=== PATIENT | male | born 1940 | race Caucasian/White ===

== ENCOUNTER 2017-12-30 08:40 | Inpatient (IN) | payer MEDICARE, MEDICAID ==
[2017-12-30] VITALS (16 sets, daily range): BP systolic 72–160; BP diastolic 42–82
[~2017-12-30] VITALS: Ht 182.9 cm; Wt 87.2 kg
[~2017-12-30 08:40] MED LIST: etomidate 2mg/ml inj. ONE; sodium chloride 0.9% 10ml vial - diluent IJ ONE
[2017-12-30] MEDS ORDERED: magnesium 2GM in 50ml NS 50 ML IV PRN (12:45)
[2017-12-30] MEDS ORDERED: CefTRIAXone 1000mg IM Kit (w/lidocaine diluent) IM ONE (12:45)
[2017-12-30] MEDS: K, MAG and/or Phos replacement - Verify level? MC SCH (12:45)
[2017-12-30] MEDS ORDERED: Neutra Phos packet PO PRN (12:45)
[2017-12-30] MEDS ORDERED: magnesium Cl slow-release 64mg tablet PO PRN (12:45)
[2017-12-30] MEDS ORDERED: magnesium 4gm in 100ml NS 100 ML IV PRN (12:45)
[2017-12-30] MEDS ORDERED: levoFLOXACIN-Levaquin 500mg/D5 100 ML IV SCH (12:45)
[2017-12-30] MEDS ORDERED: potassium Cl 20 mEq SR tablet PO PRN ×2 (12:45)
[2017-12-30] MEDS ORDERED: sodium phosphate inj. 30 MMOL in dextrose 5%-water 250 ML IV PRN (12:45)
[2017-12-30] MEDS ORDERED: sodium phosphate inj. 15 MMOL in dextrose 5%-water 150 ML IV PRN (12:45)
[2017-12-30] MEDS ORDERED: ipratropium/albuterol 3ml nebule NEB PRN (12:45)
[2017-12-30] MEDS ORDERED: ondansetron/PF 4mg/2ml inj IV PRN (12:45)
[2017-12-30] MEDS ORDERED: MIDAZolam 5mg/ml 2ml vial ONE (13:18)
[2017-12-30] MEDS ORDERED: ASPI-611 PO (13:22)
[2017-12-30] MEDS ORDERED: ATR0.5NEB IH (13:22)
[2017-12-30] MEDS ORDERED: PIPE3.3739 IV (13:22)
[2017-12-30] MEDS ORDERED: DIGO125T PO (13:22)
[2017-12-30] MEDS ORDERED: ATOR80TA PO (13:22)
[2017-12-30] MEDS ORDERED: BUDE0.5A11 IH (13:22)
[2017-12-30] MEDS ORDERED: LEVA1.2527 NEB (13:22)
[2017-12-30] MEDS ORDERED: BUDE10.2 INH (13:22)
[2017-12-30] MEDS ORDERED: LINE600I8 (13:22)
[2017-12-30] MEDS ORDERED: APIX5TAB3 PO (13:22)
[2017-12-30] MEDS ORDERED: ALB0.5UD IH (13:22)
[2017-12-30] MEDS ORDERED: AMIO200T57 PO (13:22)
[2017-12-30] MEDS ORDERED: [UNRECOGNIZED DRUG - CODE] IV (13:22)
[2017-12-30] MEDS ORDERED: FOLI0.4T2 PO (13:22)
[2017-12-30] MEDS ORDERED: PRED5TAB PO (13:23)
[2017-12-30] MEDS ORDERED: cefTRIAXone 1g/NS 100ml IVPB 100 ML IV SCH (14:00)
[2017-12-30] MEDS ORDERED: albuterol 2.5 MG/3 ML nebule NEB PRN (14:10)
[2017-12-30 14:20] LABS: ABG BASE EXCESS -0.9 mmol/L (-2.0-3.0); ABG HCO3 26.7 mmol/L (22.0-26.0); ABG OXYGEN SATURATION 99.4 % (95-98); ABG PCO2 (T) 59.9 mmHg (35.0-48.0); ABG PH (T) 7.267 (7.350-7.450); ABG PO2 (T) 316.1 mmHg (83-108); FCOHb 0.6 % (0.5-1.5); FMetHb 0.4 % (0.3-1.12); FO2Hb 98.4 % (94-100); MINUTE VOLUME 6 L/min; PEEP 5 cm H2O; RESPIRATORY RATE 12 b/min; RESPIRATORY RATE (OBSERVED) 12 b/min; TIDAL VOLUME 450 mL; TOTAL HEMOGLOBIN 10.3 G/dl (14.0-18.0)
[2017-12-30 14:25] LABS: OXYGEN SATURATION (MIXED VEN) 85.2 % (60-80); PO2 MIXED VENOUS (TEMP COR) 56.3 mmHg (35-46)
[2017-12-30 14:39] LABS: PLATELET COUNT 112 X10'3 (140-440)
[2017-12-30 14:45] LABS: BASOPHILS % (AUTO) 0 % (0-1); EOSINOPHILS # (AUTO) 0.2 X10'3 (0-0.9); EOSINOPHILS % (AUTO) 2.4 % (0-6); HEMATOCRIT 29.3 % (42.0-52.0); HEMOGLOBIN 9.4 g/dl (14.0-17.9); LYMPHOCYTES # (AUTO) 0.2 X10'3 (1.1-4.8); LYMPHOCYTES % (AUTO) 1.6 % (21-51); MEAN CORPUSCULAR HEMOGLOBIN 29.1 PG (27.0-31.0); MEAN CORPUSCULAR VOLUME 90.9 FL (78-98); MEAN PLATELET VOLUME 8.4 FL (7.4-10.4); MONOCYTES # (AUTO) 0.2 X10'3 (0-0.9); MONOCYTES % (AUTO) 2.1 % (2-12); NEUTROPHILS % (AUTO) 93.9 % (42-75); PLATELET COUNT 115 X10'3 (140-440); RED BLOOD COUNT 3.22 X10'6 (4.70-6.10); RED CELL DISTRIBUTION WIDTH 21.6 % (11.5-14.5); WHITE BLOOD COUNT 9.6 X10'3 (4.5-11.0)
[2017-12-30 14:58] LABS: ALANINE AMINOTRANSFERASE 41 U/L (12-78); ALBUMIN 2.8 G/DL (3.4-5.0); ALBUMIN/GLOBULIN RATIO 1.1 (1.1-1.5); ALKALINE PHOSPHATASE 73 IU/L (46-116); ANION GAP 7 (8-16); ASPARTATE AMINO TRANSFERASE 19 U/L (10-37); BILIRUBIN,TOTAL 0.7 MG/DL (0.1-1.0); BLOOD UREA NITROGEN 64 MG/DL (7-18); BUN/CREATININE RATIO 45.7 (5.4-32.0); CALCIUM 7.7 MG/DL (8.5-10.1); CHLORIDE 105 MMOL/L (99-107); GLUCOSE 174 MG/DL (70-104); PHOSPHORUS 3.7 MG/DL (2.3-4.5); POTASSIUM 4.4 MMOL/L (3.5-5.1); SODIUM 142 MMOL/L (135-145); TOTAL CARBON DIOXIDE 30.3 MMOL/L (24-32); TOTAL PROTEIN 5.3 G/DL (6.4-8.2); eGFR 49 ML/MIN
[2017-12-30 15:21] LABS: D-DIMER 1.91 MG/L FEU (0-0.50); INR 1.1 INR; PARTIAL THROMBOPLASTIN TIME 28 SECONDS (22-32); PROTHROMBIN TIME 10.9 SECONDS (9.0-12.0)
[2017-12-30] MEDS: DOBUTamine-DoBUTrex 500mg/D5W 250 ML IV SCH (15:29)
[2017-12-30] MEDS: ipratropium/albuterol 3ml nebule IH SCH ×2 (15:30→20:25)
[2017-12-30] MEDS: methylPREDNISolone sod succ 125mg/2ml vial IV SCH ×3 (15:38→21:14)
[2017-12-30] MEDS: enoxaparin 40mg/0.4ml syringe SUBCUT SCH (15:38)
[2017-12-30] MEDS: pantoprazole 40 MG vial IV SCH (15:39)
[2017-12-30 15:46] LABS: CLARITY,URINE Turbid (Clear); COLOR,URINE Orange (Yellow); GLUCOSE, URINE Negative (Neg); KETONES,URINE Negative (Neg); LEUKOCYTE ESTERASE ,URINE Large (Neg); NITRITES, URINE Negative (Neg); OCCULT BLOOD,URINE Large (Neg); PROTEIN,URINE 30 mg/dl (Neg); UA COLLECTION TYPE NON-SPECIFIED
[2017-12-30 15:54] LABS: RBC,URINE TNTC /HPF (0-2); WBC,URINE 50-100 /HPF (0-4)
[2017-12-30 15:55] LABS: BACTERIA,URINE NONE SEEN /HPF (Neg); SQUAMOUS EPITHELIAL CELL,UR NONE SEEN /LPF (FEW)
[2017-12-30] MEDS ORDERED: DOPamine 400mg/D5W 250ml 250 ML IV SCH (16:30)
[2017-12-30] MEDS: FENTANYL-0.9 % NACL/PF 100 ML IV PRN (16:32)
[2017-12-30] MEDS: midazolam 100mg in NS 100ml 100 ML IV PRN (16:32)
[2017-12-30] MEDS: piperacillin/tazo 3.375gm/50ml 50 ML IV SCH (16:58)
[2017-12-30] MEDS ORDERED: levalbuterol 1.25mg/0.5ml nebule IH SCH (17:00)
[2017-12-30] MEDS: lactobacillus rhamnosus 10,000 MMU CELLS/CAPSULE PO SCH (17:30)
[2017-12-30] MEDS ORDERED: linezolid 600mg/300ml PREMIX 300 ML IV SCH (20:00)
[2017-12-30] MEDS ORDERED: oseltamivir phos 75mg capsule PO SCH (20:00)
[2017-12-30] MEDS ORDERED: ipratropium 0.5 MG/2.5ML nebule IH SCH (20:00)
[2017-12-30] MEDS: budesonide 0.5mg/2ml UD nebule IH SCH (20:25)
[2017-12-30] MEDS ORDERED: amiodarone 200mg tablet CORPAK ONE (22:15)
[2017-12-30] MEDS: NORepinephrine 8mg/ 250ml NS 250 ML IV PRN (22:42)
[2017-12-30] MEDS: OSELTAMIVIR 30MG/5ML (6MG/ML) **ORAL** SYRINGE PO SCH (22:42)
[2017-12-30] MEDS: atorvastatin 20mg tablet PO SCH (22:43)
[2017-12-31] VITALS (24 sets, daily range): BP systolic 86–130; BP diastolic 42–63
[2017-12-31] MEDS: piperacillin/tazo 3.375gm/50ml 50 ML IV SCH ×2 (00:19→08:50)
[2017-12-31] MEDS: midazolam 100mg in NS 100ml 100 ML IV PRN (00:39)
[2017-12-31] MEDS: ipratropium/albuterol 3ml nebule IH SCH ×4 (02:24→20:33)
[2017-12-31] MEDS: FENTANYL-0.9 % NACL/PF 100 ML IV PRN ×2 (02:52→18:54)
[2017-12-31] MEDS: methylPREDNISolone sod succ 125mg/2ml vial IV SCH ×4 (02:52→20:14)
[2017-12-31 03:30] LABS: BASOPHILS % (AUTO) 0 % (0-1); EOSINOPHILS # (AUTO) 0.1 X10'3 (0-0.9); EOSINOPHILS % (AUTO) 0.8 % (0-6); HEMATOCRIT 30.2 % (42.0-52.0); HEMOGLOBIN 9.9 g/dl (14.0-17.9); LYMPHOCYTES # (AUTO) 0.3 X10'3 (1.1-4.8); LYMPHOCYTES % (AUTO) 3.5 % (21-51); MEAN CORPUSCULAR HEMOGLOBIN 29.3 PG (27.0-31.0); MEAN CORPUSCULAR HGB CONC 32.6 % (33.0-36.5); MEAN CORPUSCULAR VOLUME 89.8 FL (78-98); MEAN PLATELET VOLUME 8.6 FL (7.4-10.4); MONOCYTES % (AUTO) 0.6 % (2-12); NEUTROPHILS # (AUTO) 6.9 X10'3 (1.8-7.7); NEUTROPHILS % (AUTO) 95.1 % (42-75); PLATELET COUNT 142 X10'3 (140-440); RED BLOOD COUNT 3.36 X10'6 (4.70-6.10); RED CELL DISTRIBUTION WIDTH 21.6 % (11.5-14.5); WHITE BLOOD COUNT 7.3 X10'3 (4.5-11.0)
[2017-12-31 03:41] LABS: ABG BASE EXCESS -0.9 mmol/L (-2.0-3.0); ABG HCO3 23.6 mmol/L (22.0-26.0); ABG OXYGEN SATURATION 96.5 % (95-98); ABG PCO2 (T) 38.3 mmHg (35.0-48.0); ABG PH (T) 7.406 (7.350-7.450); ABG PO2 (T) 88.8 mmHg (83-108); FMetHb 0.2 % (0.3-1.12); FO2Hb 96.3 % (94-100); MINUTE VOLUME 8 L/min; PATIENT TEMPERATURE 36.9; PEEP 5 cm H2O; RESPIRATORY RATE 14 b/min; RESPIRATORY RATE (OBSERVED) 14 b/min; TIDAL VOLUME 550 mL; TOTAL HEMOGLOBIN 10.9 G/dl (14.0-18.0)
[2017-12-31 03:52] LABS: ALANINE AMINOTRANSFERASE 38 U/L (12-78); ALBUMIN 2.6 G/DL (3.4-5.0); ALKALINE PHOSPHATASE 65 IU/L (46-116); ANION GAP 8 (8-16); ASPARTATE AMINO TRANSFERASE 16 U/L (10-37); BILIRUBIN,TOTAL 0.7 MG/DL (0.1-1.0); BLOOD UREA NITROGEN 52 MG/DL (7-18); BUN/CREATININE RATIO 47.3 (5.4-32.0); CHLORIDE 105 MMOL/L (99-107); GLUCOSE 202 MG/DL (70-104); POTASSIUM 4.7 MMOL/L (3.5-5.1); SODIUM 141 MMOL/L (135-145); TOTAL PROTEIN 5.2 G/DL (6.4-8.2); eGFR 65 ML/MIN
[2017-12-31] MEDS ORDERED: digoxin 125mcg (0.125mg) tablet PO SCH (08:00)
[2017-12-31] MEDS: fluticasone/vilanterol 200mcg/25mcg inhaler IH SCH (08:00)
[2017-12-31] MEDS: predniSONE 20 mg tablet PO SCH (08:00)
[2017-12-31] MEDS: K, MAG and/or Phos replacement - Verify level? MC SCH (08:00)
[2017-12-31] MEDS: NORepinephrine 8mg/ 250ml NS 250 ML IV PRN ×2 (08:26→22:24)
[2017-12-31] MEDS: pantoprazole 40 MG vial IV SCH (08:50)
[2017-12-31] MEDS: amiodarone 200mg tablet PO SCH (08:50)
[2017-12-31] MEDS: enoxaparin 40mg/0.4ml syringe SUBCUT SCH (08:51)
[2017-12-31] MEDS: aspirin 81mg tab.chew PO SCH (08:51)
[2017-12-31] MEDS: OSELTAMIVIR 30MG/5ML (6MG/ML) **ORAL** SYRINGE PO SCH ×2 (08:56→20:14)
[2017-12-31] MEDS: lactobacillus rhamnosus 10,000 MMU CELLS/CAPSULE PO SCH ×2 (08:56→17:25)
[2017-12-31] MEDS ORDERED: dextrose 50%-water 50ml dispensing syringe IV PRN ×2 (09:25)
[2017-12-31] MEDS ORDERED: dextrose ORAL solution 15 GM/59 ML bottle PO PRN ×2 (09:25)
[2017-12-31] MEDS ORDERED: glucagon, human recombinant 1mg kit SUBCUT PRN (09:25)
[2017-12-31 09:36] LABS: OXYGEN SATURATION (MIXED VEN) 73.2 % (60-80); PO2 MIXED VENOUS (TEMP COR) 36.6 mmHg (35-46)
[2017-12-31] MEDS: budesonide 0.5mg/2ml UD nebule IH SCH ×2 (09:43→20:33)
[2017-12-31 10:32] LABS: HEMOGLOBIN A1C 5.5 % (4.5-6.2)
[2017-12-31] MEDS: levoFLOXACIN-Levaquin 500mg/D5 100 ML IV SCH (12:13)
[2017-12-31] MEDS: apixaban 5mg tablet PO SCH (14:35)
[2017-12-31] MEDS: folic acid 0.4mg tablet PO SCH (14:36)
[2017-12-31] MEDS: insulin regular, human vial - multi-dose SQ SCH ×2 (14:37→20:48)
[2017-12-31] MEDS: atorvastatin 20mg tablet PO SCH (20:14)
[2017-12-31] MEDS: DOBUTamine-DoBUTrex 500mg/D5W 250 ML IV SCH (20:15)
[2017-12-31] MEDS: insulin glargine (Lantus) pen - multi-dose SQ SCH (20:49)
[2018-01-01] VITALS (24 sets, daily range): BP systolic 88–142; BP diastolic 39–62
[2018-01-01] MEDS: methylPREDNISolone sod succ 125mg/2ml vial IV SCH ×4 (02:00→20:06)
[2018-01-01] MEDS: insulin regular, human vial - multi-dose SQ SCH ×4 (02:03→20:18)
[2018-01-01 02:20] LABS: BASOPHILS % (AUTO) 0 % (0-1); EOSINOPHILS # (AUTO) 0.1 X10'3 (0-0.9); EOSINOPHILS % (AUTO) 1.6 % (0-6); HEMATOCRIT 27.4 % (42.0-52.0); HEMOGLOBIN 8.8 g/dl (14.0-17.9); LYMPHOCYTES # (AUTO) 0.2 X10'3 (1.1-4.8); LYMPHOCYTES % (AUTO) 3.2 % (21-51); MEAN CORPUSCULAR HGB CONC 32.2 % (33.0-36.5); MEAN CORPUSCULAR VOLUME 90.3 FL (78-98); MEAN PLATELET VOLUME 8.1 FL (7.4-10.4); MONOCYTES # (AUTO) 0.1 X10'3 (0-0.9); MONOCYTES % (AUTO) 2.9 % (2-12); NEUTROPHILS # (AUTO) 4.8 X10'3 (1.8-7.7); NEUTROPHILS % (AUTO) 92.3 % (42-75); PLATELET COUNT 124 X10'3 (140-440); RED BLOOD COUNT 3.03 X10'6 (4.70-6.10); RED CELL DISTRIBUTION WIDTH 21.8 % (11.5-14.5); WHITE BLOOD COUNT 5.2 X10'3 (4.5-11.0)
[2018-01-01] MEDS: ipratropium/albuterol 3ml nebule IH SCH ×4 (02:25→20:39)
[2018-01-01 02:34] LABS: ALANINE AMINOTRANSFERASE 34 U/L (12-78); ALBUMIN 2.5 G/DL (3.4-5.0); ALKALINE PHOSPHATASE 56 IU/L (46-116); ANION GAP 4 (8-16); ASPARTATE AMINO TRANSFERASE 16 U/L (10-37); BILIRUBIN,TOTAL 0.5 MG/DL (0.1-1.0); BLOOD UREA NITROGEN 51 MG/DL (7-18); BUN/CREATININE RATIO 42.5 (5.4-32.0); CALCIUM 7.9 MG/DL (8.5-10.1); CHLORIDE 108 MMOL/L (99-107); GLUCOSE 188 MG/DL (70-104); MAGNESIUM 2.1 MG/DL (1.5-2.4); POTASSIUM 4.5 MMOL/L (3.5-5.1); PREALBUMIN 16.4 MG/DL (19-36); SODIUM 143 MMOL/L (135-145); TOTAL CARBON DIOXIDE 31.3 MMOL/L (24-32); TOTAL PROTEIN 4.9 G/DL (6.4-8.2); eGFR 59 ML/MIN
[2018-01-01 03:45] LABS: ABG BASE EXCESS 2.8 mmol/L (-2.0-3.0); ABG HCO3 29.5 mmol/L (22.0-26.0); ABG OXYGEN SATURATION 92.5 % (95-98); ABG PCO2 (T) 55.7 mmHg (35.0-48.0); ABG PO2 (T) 66.9 mmHg (83-108); FCOHb 0.3 % (0.5-1.5); FMetHb 0.3 % (0.3-1.12); FO2Hb 91.9 % (94-100); MINUTE VOLUME 6 L/min; PATIENT TEMPERATURE 36.5; PEEP 5 cm H2O; RESPIRATORY RATE 10 b/min; RESPIRATORY RATE (OBSERVED) 10 b/min; TIDAL VOLUME 550 mL; TOTAL HEMOGLOBIN 10.1 G/dl (14.0-18.0)
[2018-01-01] MEDS: K, MAG and/or Phos replacement - Verify level? MC SCH (08:00)
[2018-01-01] MEDS: fluticasone/vilanterol 200mcg/25mcg inhaler IH SCH (08:00)
[2018-01-01] MEDS: predniSONE 20 mg tablet PO SCH (08:00)
[2018-01-01] MEDS: lactobacillus rhamnosus 10,000 MMU CELLS/CAPSULE PO SCH ×2 (08:33→17:53)
[2018-01-01] MEDS: levoFLOXACIN-Levaquin 500mg/D5 100 ML IV SCH (08:33)
[2018-01-01] MEDS: amiodarone 200mg tablet PO SCH (08:33)
[2018-01-01] MEDS: apixaban 5mg tablet PO SCH (08:33)
[2018-01-01] MEDS: pantoprazole 40 MG vial IV SCH (08:33)
[2018-01-01] MEDS: folic acid 0.4mg tablet PO SCH (08:34)
[2018-01-01] MEDS: aspirin 81mg tab.chew PO SCH (08:34)
[2018-01-01] MEDS: OSELTAMIVIR 30MG/5ML (6MG/ML) **ORAL** SYRINGE PO SCH ×2 (08:35→20:06)
[2018-01-01] MEDS: budesonide 0.5mg/2ml UD nebule IH SCH ×2 (09:04→20:38)
[2018-01-01] MEDS: dexmedetomidin/NS 400mcg/100ml 100 ML IV SCH (14:54)
[2018-01-01] MEDS: NORepinephrine 8mg/ 250ml NS 250 ML IV PRN (14:55)
[2018-01-01] MEDS: FENTANYL-0.9 % NACL/PF 100 ML IV PRN (15:25)
[2018-01-01] MEDS: atorvastatin 20mg tablet PO SCH (20:06)
[2018-01-01] MEDS: insulin glargine (Lantus) pen - multi-dose SQ SCH (20:18)
[2018-01-02] VITALS (25 sets, daily range): BP systolic 87–149; BP diastolic 41–62
[2018-01-02] MEDS: DOBUTamine-DoBUTrex 500mg/D5W 250 ML IV SCH (00:49)
[2018-01-02] MEDS: FENTANYL-0.9 % NACL/PF 100 ML IV PRN ×2 (00:49→07:45)
[2018-01-02] MEDS: methylPREDNISolone sod succ 125mg/2ml vial IV SCH ×4 (02:09→20:18)
[2018-01-02] MEDS: dexmedetomidin/NS 400mcg/100ml 100 ML IV SCH ×2 (02:09→18:57)
[2018-01-02] MEDS: insulin regular, human vial - multi-dose SQ SCH ×3 (02:11→20:26)
[2018-01-02] MEDS: ipratropium/albuterol 3ml nebule IH SCH ×4 (02:33→21:12)
[2018-01-02 02:44] LABS: BASOPHILS % (AUTO) 0 % (0-1); EOSINOPHILS # (AUTO) 0.1 X10'3 (0-0.9); EOSINOPHILS % (AUTO) 1.4 % (0-6); HEMATOCRIT 25.9 % (42.0-52.0); HEMOGLOBIN 8.4 g/dl (14.0-17.9); LYMPHOCYTES # (AUTO) 0.2 X10'3 (1.1-4.8); LYMPHOCYTES % (AUTO) 3.1 % (21-51); MEAN CORPUSCULAR HEMOGLOBIN 29.2 PG (27.0-31.0); MEAN CORPUSCULAR HGB CONC 32.3 % (33.0-36.5); MEAN CORPUSCULAR VOLUME 90.4 FL (78-98); MEAN PLATELET VOLUME 8.4 FL (7.4-10.4); MONOCYTES # (AUTO) 0.1 X10'3 (0-0.9); MONOCYTES % (AUTO) 2.5 % (2-12); NEUTROPHILS # (AUTO) 4.7 X10'3 (1.8-7.7); PLATELET COUNT 99 X10'3 (140-440); RED BLOOD COUNT 2.86 X10'6 (4.70-6.10); RED CELL DISTRIBUTION WIDTH 22.2 % (11.5-14.5); WHITE BLOOD COUNT 5.1 X10'3 (4.5-11.0)
[2018-01-02 02:58] LABS: ALANINE AMINOTRANSFERASE 35 U/L (12-78); ALBUMIN 2.6 G/DL (3.4-5.0); ALBUMIN/GLOBULIN RATIO 1.1 (1.1-1.5); ALKALINE PHOSPHATASE 55 IU/L (46-116); ANION GAP 2 (8-16); ASPARTATE AMINO TRANSFERASE 19 U/L (10-37); BILIRUBIN,TOTAL 0.4 MG/DL (0.1-1.0); BLOOD UREA NITROGEN 52 MG/DL (7-18); BUN/CREATININE RATIO 43.3 (5.4-32.0); CHLORIDE 110 MMOL/L (99-107); GLUCOSE 123 MG/DL (70-104); MAGNESIUM 2.2 MG/DL (1.5-2.4); POTASSIUM 4.8 MMOL/L (3.5-5.1); SODIUM 144 MMOL/L (135-145); TOTAL CARBON DIOXIDE 32.1 MMOL/L (24-32); TOTAL PROTEIN 4.9 G/DL (6.4-8.2); eGFR 59 ML/MIN
[2018-01-02 03:55] LABS: ABG BASE EXCESS 2.8 mmol/L (-2.0-3.0); ABG HCO3 28.6 mmol/L (22.0-26.0); ABG OXYGEN SATURATION 94.2 % (95-98); ABG PCO2 (T) 51.5 mmHg (35.0-48.0); ABG PH (T) 7.365 (7.350-7.450); ABG PO2 (T) 76.1 mmHg (83-108); FCOHb 0.4 % (0.5-1.5); FMetHb 0.2 % (0.3-1.12); FO2Hb 93.6 % (94-100); MINUTE VOLUME 8 L/min; PATIENT TEMPERATURE 37.3; PEEP 5 cm H2O; RESPIRATORY RATE 12 b/min; RESPIRATORY RATE (OBSERVED) 12 b/min; TIDAL VOLUME 550 mL; TOTAL HEMOGLOBIN 9.1 G/dl (14.0-18.0)
[2018-01-02] MEDS: fluticasone/vilanterol 200mcg/25mcg inhaler IH SCH (08:00)
[2018-01-02] MEDS: K, MAG and/or Phos replacement - Verify level? MC SCH (08:00)
[2018-01-02] MEDS: budesonide 0.5mg/2ml UD nebule IH SCH ×2 (08:02→21:11)
[2018-01-02] MEDS: folic acid 0.4mg tablet PO SCH (08:29)
[2018-01-02] MEDS: OSELTAMIVIR 30MG/5ML (6MG/ML) **ORAL** SYRINGE PO SCH ×2 (08:29→20:18)
[2018-01-02] MEDS: aspirin 81mg tab.chew PO SCH (08:30)
[2018-01-02] MEDS: levoFLOXACIN-Levaquin 500mg/D5 100 ML IV SCH (08:30)
[2018-01-02] MEDS: amiodarone 200mg tablet PO SCH (08:30)
[2018-01-02] MEDS: lactobacillus rhamnosus 10,000 MMU CELLS/CAPSULE PO SCH ×2 (08:30→17:46)
[2018-01-02] MEDS: apixaban 5mg tablet PO SCH (08:30)
[2018-01-02] MEDS: pantoprazole 40 MG vial IV SCH (08:30)
[2018-01-02] MEDS: atorvastatin 20mg tablet PO SCH (20:18)
[2018-01-02] MEDS: insulin glargine (Lantus) pen - multi-dose SQ SCH (20:27)
[2018-01-03] VITALS (23 sets, daily range): BP systolic 99–152; BP diastolic 51–78
[2018-01-03] MEDS: methylPREDNISolone sod succ 125mg/2ml vial IV SCH ×4 (02:21→21:01)
[2018-01-03] MEDS: ipratropium/albuterol 3ml nebule IH SCH ×4 (02:22→21:07)
[2018-01-03] MEDS: insulin regular, human vial - multi-dose SQ SCH ×2 (02:24→08:56)
[2018-01-03 02:36] LABS: ABG BASE EXCESS 3.3 mmol/L (-2.0-3.0); ABG HCO3 28.7 mmol/L (22.0-26.0); ABG OXYGEN SATURATION 96.3 % (95-98); ABG PO2 (T) 97.3 mmHg (83-108); FCOHb 0.3 % (0.5-1.5); FMetHb 0.2 % (0.3-1.12); FO2Hb 95.8 % (94-100); MINUTE VOLUME 8 L/min; PATIENT TEMPERATURE 37.7; PEEP 5 cm H2O; RESPIRATORY RATE 12 b/min; RESPIRATORY RATE (OBSERVED) 13 b/min; TIDAL VOLUME 550 mL; TOTAL HEMOGLOBIN 8.6 G/dl (14.0-18.0)
[2018-01-03 02:37] LABS: BASOPHILS % (AUTO) 0 % (0-1); EOSINOPHILS % (AUTO) 0 % (0-6); HEMATOCRIT 24.1 % (42.0-52.0); HEMOGLOBIN 7.8 g/dl (14.0-17.9); LYMPHOCYTES # (AUTO) 0.1 X10'3 (1.1-4.8); LYMPHOCYTES % (AUTO) 2.9 % (21-51); MEAN CORPUSCULAR HEMOGLOBIN 29.3 PG (27.0-31.0); MEAN CORPUSCULAR HGB CONC 32.2 % (33.0-36.5); MONOCYTES # (AUTO) 0.1 X10'3 (0-0.9); MONOCYTES % (AUTO) 2.5 % (2-12); NEUTROPHILS % (AUTO) 94.6 % (42-75); PLATELET COUNT 76 X10'3 (140-440); RED BLOOD COUNT 2.65 X10'6 (4.70-6.10); WHITE BLOOD COUNT 3.2 X10'3 (4.5-11.0)
[2018-01-03 02:52] LABS: ALANINE AMINOTRANSFERASE 34 U/L (12-78); ALBUMIN 2.5 G/DL (3.4-5.0); ALBUMIN/GLOBULIN RATIO 1.1 (1.1-1.5); ALKALINE PHOSPHATASE 54 IU/L (46-116); ANION GAP 2 (8-16); ASPARTATE AMINO TRANSFERASE 15 U/L (10-37); BILIRUBIN,TOTAL 0.4 MG/DL (0.1-1.0); BLOOD UREA NITROGEN 53 MG/DL (7-18); BUN/CREATININE RATIO 48.2 (5.4-32.0); CALCIUM 7.7 MG/DL (8.5-10.1); CHLORIDE 113 MMOL/L (99-107); GLUCOSE 138 MG/DL (70-104); MAGNESIUM 2.1 MG/DL (1.5-2.4); SODIUM 147 MMOL/L (135-145); TOTAL CARBON DIOXIDE 32.5 MMOL/L (24-32); TOTAL PROTEIN 4.8 G/DL (6.4-8.2); eGFR 65 ML/MIN
[2018-01-03] MEDS: FENTANYL-0.9 % NACL/PF 100 ML IV PRN (04:19)
[2018-01-03] MEDS: K, MAG and/or Phos replacement - Verify level? MC SCH (06:36)
[2018-01-03] MEDS: dexmedetomidin/NS 400mcg/100ml 100 ML IV SCH (07:01)
[2018-01-03] MEDS: aspirin 81mg tab.chew PO SCH (07:22)
[2018-01-03] MEDS: atorvastatin 20mg tablet PO SCH (07:22)
[2018-01-03] MEDS: apixaban 5mg tablet PO SCH (07:22)
[2018-01-03] MEDS: folic acid 0.4mg tablet PO SCH (07:22)
[2018-01-03] MEDS: pantoprazole 40 MG vial IV SCH (07:22)
[2018-01-03] MEDS: lactobacillus rhamnosus 10,000 MMU CELLS/CAPSULE PO SCH ×2 (07:22→17:30)
[2018-01-03] MEDS: amiodarone 200mg tablet PO SCH (07:22)
[2018-01-03] MEDS: levoFLOXACIN-Levaquin 500mg/D5 100 ML IV SCH (07:23)
[2018-01-03] MEDS: OSELTAMIVIR 30MG/5ML (6MG/ML) **ORAL** SYRINGE PO SCH ×2 (07:23→20:00)
[2018-01-03] MEDS ORDERED: racepinephrine 11.25mg/0.5ml nebule NEB PRN (10:45)
[2018-01-03] MEDS ORDERED: ipratropium/albuterol 3ml nebule NEB PRN (10:45)
[2018-01-03] MEDS: budesonide 0.5mg/2ml UD nebule IH SCH ×2 (11:00→21:07)
[2018-01-03] MEDS: fluticasone/vilanterol 200mcg/25mcg inhaler IH SCH (11:01)
[2018-01-03] MEDS: ipratropium/albuterol 3ml nebule NEB SCH ×2 (12:47→21:00)
[2018-01-03 14:21] LABS: ABG BASE EXCESS 0.8 mmol/L (-2.0-3.0); ABG HCO3 28.7 mmol/L (22.0-26.0); ABG OXYGEN SATURATION 98.8 % (95-98); ABG PCO2 (T) 66.2 mmHg (35.0-48.0); ABG PH (T) 7.258 (7.350-7.450); ABG PO2 (T) 189.5 mmHg (83-108); FCOHb 0.3 % (0.5-1.5); FMetHb 0.2 % (0.3-1.12); FO2Hb 98.3 % (94-100); MINUTE VOLUME 23 L/min; PATIENT TEMPERATURE 37.7; RESPIRATORY RATE 14 b/min; RESPIRATORY RATE (OBSERVED) 20 b/min; TOTAL HEMOGLOBIN 10.4 G/dl (14.0-18.0)
[2018-01-03] MEDS: DOBUTamine-DoBUTrex 500mg/D5W 250 ML IV SCH (17:50)
[2018-01-03] MEDS: insulin glargine (Lantus) pen - multi-dose SQ SCH (21:00)
[2018-01-03] MEDS ORDERED: diphenhydrAMINE 50 mg/ml inj IV ONE (23:55)
[2018-01-04] VITALS (24 sets, daily range): BP systolic 112–138; BP diastolic 58–78
[2018-01-04] MEDS: methylPREDNISolone sod succ 125mg/2ml vial IV SCH ×4 (02:44→20:23)
[2018-01-04 02:56] LABS: ALANINE AMINOTRANSFERASE 41 U/L (12-78); ALBUMIN 2.9 G/DL (3.4-5.0); ALBUMIN/GLOBULIN RATIO 1.2 (1.1-1.5); ALKALINE PHOSPHATASE 50 IU/L (46-116); ANION GAP 5 (8-16); ASPARTATE AMINO TRANSFERASE 25 U/L (10-37); BILIRUBIN,TOTAL 0.5 MG/DL (0.1-1.0); BLOOD UREA NITROGEN 67 MG/DL (7-18); BUN/CREATININE RATIO 57.8 (5.4-32.0); CALCIUM 8.4 MG/DL (8.5-10.1); CHLORIDE 113 MMOL/L (99-107); CREATININE 1.16 MG/DL (0.60-1.10); GLUCOSE 119 MG/DL (70-104); MAGNESIUM 2.3 MG/DL (1.5-2.4); POTASSIUM 5.2 MMOL/L (3.5-5.1); PREALBUMIN 22.5 MG/DL (19-36); SODIUM 150 MMOL/L (135-145); TOTAL CARBON DIOXIDE 31.8 MMOL/L (24-32); TOTAL PROTEIN 5.3 G/DL (6.4-8.2); eGFR 61 ML/MIN
[2018-01-04] MEDS: ipratropium/albuterol 3ml nebule NEB SCH ×4 (03:00→20:06)
[2018-01-04 03:25] LABS: BASOPHILS % (AUTO) 0 % (0-1); EOSINOPHILS % (AUTO) 0 % (0-6); HEMATOCRIT 25.9 % (42.0-52.0); HEMOGLOBIN 8.6 g/dl (14.0-17.9); LYMPHOCYTES # (AUTO) 0.2 X10'3 (1.1-4.8); LYMPHOCYTES % (AUTO) 2.5 % (21-51); MEAN CORPUSCULAR HGB CONC 33.3 % (33.0-36.5); MEAN CORPUSCULAR VOLUME 90.1 FL (78-98); MEAN PLATELET VOLUME 8.4 FL (7.4-10.4); MONOCYTES # (AUTO) 0.1 X10'3 (0-0.9); MONOCYTES % (AUTO) 1.8 % (2-12); NEUTROPHILS # (AUTO) 6.1 X10'3 (1.8-7.7); NEUTROPHILS % (AUTO) 95.7 % (42-75); PLATELET COUNT 76 X10'3 (140-440); RED BLOOD COUNT 2.88 X10'6 (4.70-6.10); RED CELL DISTRIBUTION WIDTH 20.8 % (11.5-14.5); WHITE BLOOD COUNT 6.4 X10'3 (4.5-11.0)
[2018-01-04] MEDS: ipratropium/albuterol 3ml nebule IH SCH ×2 (03:31→09:11)
[2018-01-04] MEDS: lactobacillus rhamnosus 10,000 MMU CELLS/CAPSULE PO SCH ×2 (07:30→17:30)
[2018-01-04] MEDS: apixaban 5mg tablet PO SCH (08:00)
[2018-01-04] MEDS: amiodarone 200mg tablet PO SCH (08:00)
[2018-01-04] MEDS: methylnaltrexone br 12mg/0.6ml inj***SubQ only SQ SCH (08:00)
[2018-01-04] MEDS: K, MAG and/or Phos replacement - Verify level? MC SCH (08:00)
[2018-01-04] MEDS: folic acid 0.4mg tablet PO SCH (08:00)
[2018-01-04] MEDS: OSELTAMIVIR 30MG/5ML (6MG/ML) **ORAL** SYRINGE PO SCH (08:00)
[2018-01-04] MEDS: pantoprazole 40 MG vial IV SCH (08:04)
[2018-01-04] MEDS: levoFLOXACIN-Levaquin 500mg/D5 100 ML IV SCH (08:05)
[2018-01-04] MEDS: aspirin 81mg tab.chew PO SCH (08:30)
[2018-01-04] MEDS: budesonide 0.5mg/2ml UD nebule IH SCH ×2 (09:11→20:06)
[2018-01-04] MEDS: fluticasone/vilanterol 200mcg/25mcg inhaler IH SCH (09:11)
[2018-01-04] MEDS: atorvastatin 20mg tablet PO SCH (20:24)
[2018-01-04] MEDS: insulin glargine (Lantus) pen - multi-dose SQ SCH (20:26)
[2018-01-05] VITALS (24 sets, daily range): BP systolic 54–144; BP diastolic 21–72
[2018-01-05 02:05] LABS: ALANINE AMINOTRANSFERASE 43 U/L (12-78); ALBUMIN/GLOBULIN RATIO 1.2 (1.1-1.5); ALKALINE PHOSPHATASE 52 IU/L (46-116); ANION GAP 4 (8-16); ASPARTATE AMINO TRANSFERASE 23 U/L (10-37); BILIRUBIN,TOTAL 0.5 MG/DL (0.1-1.0); BLOOD UREA NITROGEN 74 MG/DL (7-18); BUN/CREATININE RATIO 61.2 (5.4-32.0); CALCIUM 8.6 MG/DL (8.5-10.1); CHLORIDE 116 MMOL/L (99-107); CREATININE 1.21 MG/DL (0.60-1.10); GLUCOSE 136 MG/DL (70-104); MAGNESIUM 2.6 MG/DL (1.5-2.4); POTASSIUM 5.5 MMOL/L (3.5-5.1); SODIUM 153 MMOL/L (135-145); TOTAL CARBON DIOXIDE 33.5 MMOL/L (24-32); TOTAL PROTEIN 5.5 G/DL (6.4-8.2); eGFR 58 ML/MIN
[2018-01-05 02:16] LABS: BASOPHILS % (AUTO) 0 % (0-1); EOSINOPHILS # (AUTO) 0.1 X10'3 (0-0.9); EOSINOPHILS % (AUTO) 0.9 % (0-6); HEMATOCRIT 28.3 % (42.0-52.0); HEMOGLOBIN 9.1 g/dl (14.0-17.9); LYMPHOCYTES # (AUTO) 0.2 X10'3 (1.1-4.8); LYMPHOCYTES % (AUTO) 2.7 % (21-51); MEAN CORPUSCULAR HEMOGLOBIN 29.7 PG (27.0-31.0); MEAN CORPUSCULAR HGB CONC 32.2 % (33.0-36.5); MEAN CORPUSCULAR VOLUME 92.3 FL (78-98); MEAN PLATELET VOLUME 8.7 FL (7.4-10.4); MONOCYTES # (AUTO) 0.1 X10'3 (0-0.9); MONOCYTES % (AUTO) 2.5 % (2-12); NEUTROPHILS # (AUTO) 5.3 X10'3 (1.8-7.7); NEUTROPHILS % (AUTO) 93.9 % (42-75); PLATELET COUNT 79 X10'3 (140-440); RED BLOOD COUNT 3.07 X10'6 (4.70-6.10); RED CELL DISTRIBUTION WIDTH 21.8 % (11.5-14.5); WHITE BLOOD COUNT 5.7 X10'3 (4.5-11.0)
[2018-01-05] MEDS: methylPREDNISolone sod succ 125mg/2ml vial IV SCH ×4 (02:38→19:58)
[2018-01-05] MEDS: ipratropium/albuterol 3ml nebule NEB SCH ×4 (02:40→23:00)
[2018-01-05] MEDS: DOBUTamine-DoBUTrex 500mg/D5W 250 ML IV SCH (02:55)
[2018-01-05] MEDS: K, MAG and/or Phos replacement - Verify level? MC SCH (07:09)
[2018-01-05] MEDS: lactobacillus rhamnosus 10,000 MMU CELLS/CAPSULE PO SCH ×2 (07:30→17:25)
[2018-01-05] MEDS: pantoprazole 40 MG vial IV SCH (07:44)
[2018-01-05] MEDS: levoFLOXACIN-Levaquin 500mg/D5 100 ML IV SCH (07:44)
[2018-01-05] MEDS: amiodarone 200mg tablet PO SCH (08:00)
[2018-01-05] MEDS: folic acid 0.4mg tablet PO SCH (08:00)
[2018-01-05] MEDS: apixaban 5mg tablet PO SCH (08:00)
[2018-01-05] MEDS: aspirin 81mg tab.chew PO SCH (08:30)
[2018-01-05] MEDS: budesonide 0.5mg/2ml UD nebule IH SCH ×2 (08:41→20:00)
[2018-01-05] MEDS: fluticasone/vilanterol 200mcg/25mcg inhaler IH SCH (08:42)
[2018-01-05] MEDS: normal saline 1000ml 1,000 ML IV SCH ×2 (10:46→20:20)
[2018-01-05 11:26] LABS: ABG BASE EXCESS 0.5 mmol/L (-2.0-3.0); ABG HCO3 31.2 mmol/L (22.0-26.0); ABG OXYGEN SATURATION 96.6 % (95-98); ABG PCO2 (T) 90.2 mmHg (35.0-48.0); ABG PH (T) 7.149 (7.350-7.450); ABG PO2 (T) 93.8 mmHg (83-108); FCOHb 0.1 % (0.5-1.5); FMetHb 0.2 % (0.3-1.12); FO2Hb 96.3 % (94-100); MINUTE VOLUME 19 L/min; PATIENT TEMPERATURE 35.7; RESPIRATORY RATE 14 b/min; RESPIRATORY RATE (OBSERVED) 26 b/min; TOTAL HEMOGLOBIN 9.9 G/dl (14.0-18.0)
[2018-01-05 13:21] LABS: ABG BASE EXCESS -3.3 mmol/L (-2.0-3.0); ABG HCO3 27.2 mmol/L (22.0-26.0); ABG PO2 (T) 73.5 mmHg (83-108); FCOHb 0.3 % (0.5-1.5); FMetHb 0.2 % (0.3-1.12); FO2Hb 92.5 % (94-100); MINUTE VOLUME 20 L/min; PATIENT TEMPERATURE 35.8; RESPIRATORY RATE 22 b/min; RESPIRATORY RATE (OBSERVED) 23 b/min; TOTAL HEMOGLOBIN 9.9 G/dl (14.0-18.0)
[2018-01-05] MEDS ORDERED: MIDAZolam 5mg/ml 2ml vial ONE (14:35)
[2018-01-05] MEDS: FENTANYL-0.9 % NACL/PF 100 ML IV PRN ×2 (15:04→19:34)
[2018-01-05] MEDS: midazolam 100mg in NS 100ml 100 ML IV PRN ×2 (15:05→19:25)
[2018-01-05] MEDS ORDERED: FENTANYL-0.9 % NACL/PF 100 ML IV PRN (15:40)
[2018-01-05] MEDS ORDERED: midazolam 100mg in NS 100ml 100 ML IV PRN (15:40)
[2018-01-05] MEDS ORDERED: fentaNYL/PF 50MCG/1 ML 2ML syringe IV PRN (15:40)
[2018-01-05] MEDS ORDERED: midazolam 2 mg/2 ml injection IV ONE (15:40)
[2018-01-05] MEDS ORDERED: ipratropium/albuterol 3ml nebule NEB PRN (15:40)
[2018-01-05] MEDS: NORepinephrine 8mg/ 250ml NS 250 ML IV PRN ×2 (16:16→20:00)
[2018-01-05 17:41] LABS: ABG BASE EXCESS 1.1 mmol/L (-2.0-3.0); ABG OXYGEN SATURATION 98.4 % (95-98); ABG PCO2 (T) 47.5 mmHg (35.0-48.0); ABG PH (T) 7.369 (7.350-7.450); ABG PO2 (T) 125.1 mmHg (83-108); FCOHb 0.3 % (0.5-1.5); FMetHb 0.2 % (0.3-1.12); FO2Hb 97.9 % (94-100); MINUTE VOLUME 9 L/min; PATIENT TEMPERATURE 36.2; PEEP 5 cm H2O; RESPIRATORY RATE 22 b/min; RESPIRATORY RATE (OBSERVED) 22 b/min; TOTAL HEMOGLOBIN 9.6 G/dl (14.0-18.0)
[2018-01-05] MEDS: amiodarone/D5 360MG/200ML BAG 200 ML IV SCH (19:16)
[2018-01-05] MEDS: insulin glargine (Lantus) pen - multi-dose SQ SCH (21:00)
[2018-01-05] MEDS ORDERED: amiodarone 150mg/dext, iso-os 100 ML IV ONE ×2 (22:30→22:43)
[2018-01-06] VITALS (24 sets, daily range): BP systolic 96–138; BP diastolic 51–80
[2018-01-06] MEDS: atorvastatin 20mg tablet PO SCH ×2 (00:18→20:06)
[2018-01-06] MEDS: NORepinephrine 8mg/ 250ml NS 250 ML IV PRN ×3 (01:25→17:19)
[2018-01-06] MEDS: normal saline 1000ml 1,000 ML IV SCH (02:08)
[2018-01-06] MEDS: methylPREDNISolone sod succ 125mg/2ml vial IV SCH ×4 (02:08→20:06)
[2018-01-06 02:43] LABS: BASOPHILS % (AUTO) 0 % (0-1); EOSINOPHILS # (AUTO) 0.2 X10'3 (0-0.9); EOSINOPHILS % (AUTO) 1.7 % (0-6); HEMATOCRIT 26.9 % (42.0-52.0); HEMOGLOBIN 8.8 g/dl (14.0-17.9); LYMPHOCYTES # (AUTO) 0.2 X10'3 (1.1-4.8); MEAN CORPUSCULAR HEMOGLOBIN 29.4 PG (27.0-31.0); MEAN CORPUSCULAR HGB CONC 32.5 % (33.0-36.5); MEAN CORPUSCULAR VOLUME 90.6 FL (78-98); MEAN PLATELET VOLUME 8.5 FL (7.4-10.4); MONOCYTES # (AUTO) 0.3 X10'3 (0-0.9); NEUTROPHILS # (AUTO) 9.5 X10'3 (1.8-7.7); NEUTROPHILS % (AUTO) 93.3 % (42-75); PLATELET COUNT 96 X10'3 (140-440); RED BLOOD COUNT 2.97 X10'6 (4.70-6.10); RED CELL DISTRIBUTION WIDTH 22.1 % (11.5-14.5); WHITE BLOOD COUNT 10.2 X10'3 (4.5-11.0)
[2018-01-06 03:02] LABS: ALANINE AMINOTRANSFERASE 62 U/L (12-78); ALBUMIN 2.5 G/DL (3.4-5.0); ALBUMIN/GLOBULIN RATIO 1.1 (1.1-1.5); ALKALINE PHOSPHATASE 49 IU/L (46-116); ANION GAP 9 (8-16); ASPARTATE AMINO TRANSFERASE 38 U/L (10-37); BILIRUBIN,TOTAL 0.6 MG/DL (0.1-1.0); BLOOD UREA NITROGEN 80 MG/DL (7-18); BUN/CREATININE RATIO 56.3 (5.4-32.0); CALCIUM 7.9 MG/DL (8.5-10.1); CHLORIDE 117 MMOL/L (99-107); CREATININE 1.42 MG/DL (0.60-1.10); GLUCOSE 179 MG/DL (70-104); MAGNESIUM 2.6 MG/DL (1.5-2.4); POTASSIUM 5.2 MMOL/L (3.5-5.1); SODIUM 154 MMOL/L (135-145); TOTAL CARBON DIOXIDE 27.8 MMOL/L (24-32); TOTAL PROTEIN 4.7 G/DL (6.4-8.2); eGFR 49 ML/MIN
[2018-01-06] MEDS: ipratropium/albuterol 3ml nebule NEB SCH ×6 (03:30→23:20)
[2018-01-06 05:10] LABS: ABG BASE EXCESS 2.7 mmol/L (-2.0-3.0); ABG OXYGEN SATURATION 91.8 % (95-98); ABG PCO2 (T) 46.3 mmHg (35.0-48.0); ABG PH (T) 7.399 (7.350-7.450); ABG PO2 (T) 64.4 mmHg (83-108); FCOHb 0.3 % (0.5-1.5); FMetHb 0.1 % (0.3-1.12); FO2Hb 91.4 % (94-100); MINUTE VOLUME 10 L/min; PATIENT TEMPERATURE 36.8; PEEP 5 cm H2O; RESPIRATORY RATE 22 b/min; RESPIRATORY RATE (OBSERVED) 22 b/min; TOTAL HEMOGLOBIN 9.7 G/dl (14.0-18.0)
[2018-01-06] MEDS: amiodarone/D5 360MG/200ML BAG 200 ML IV SCH ×2 (06:04→17:19)
[2018-01-06] MEDS: amiodarone 200mg tablet PO SCH (07:23)
[2018-01-06] MEDS: methylnaltrexone br 12mg/0.6ml inj***SubQ only SQ SCH (07:24)
[2018-01-06] MEDS: K, MAG and/or Phos replacement - Verify level? MC SCH (07:24)
[2018-01-06] MEDS: fluticasone/vilanterol 200mcg/25mcg inhaler IH SCH (08:00)
[2018-01-06] MEDS: insulin regular, human vial - multi-dose SQ SCH ×3 (08:28→20:28)
[2018-01-06] MEDS: aspirin 81mg tab.chew PO SCH (08:29)
[2018-01-06] MEDS: lactobacillus rhamnosus 10,000 MMU CELLS/CAPSULE PO SCH ×2 (08:29→17:19)
[2018-01-06] MEDS: pantoprazole 40 MG vial IV SCH (08:29)
[2018-01-06] MEDS: levoFLOXACIN-Levaquin 500mg/D5 100 ML IV SCH (08:29)
[2018-01-06] MEDS: folic acid 0.4mg tablet PO SCH (08:29)
[2018-01-06] MEDS: apixaban 5mg tablet PO SCH (08:29)
[2018-01-06] MEDS: midazolam 100mg in NS 100ml 100 ML IV PRN (09:16)
[2018-01-06] MEDS: sodium chloride 0.45% 1,000 ML IV SCH (10:41)
[2018-01-06] MEDS: FENTANYL-0.9 % NACL/PF 100 ML IV PRN ×2 (14:48→22:23)
[2018-01-06] MEDS: mineral oil/petrolatum ophthal oint EACHEYE SCH (20:06)
[2018-01-06] MEDS: insulin glargine (Lantus) pen - multi-dose SQ SCH (20:27)
[2018-01-07] VITALS (23 sets, daily range): BP systolic 86–132; BP diastolic 34–60
[2018-01-07] MEDS: sodium chloride 0.45% 1,000 ML IV SCH (00:31)
[2018-01-07] MEDS: methylPREDNISolone sod succ 125mg/2ml vial IV SCH ×4 (02:09→21:56)
[2018-01-07] MEDS: mineral oil/petrolatum ophthal oint EACHEYE SCH ×4 (02:10→21:55)
[2018-01-07] MEDS: ipratropium/albuterol 3ml nebule NEB SCH ×6 (02:42→23:25)
[2018-01-07] MEDS: insulin regular, human vial - multi-dose SQ SCH ×4 (02:51→22:19)
[2018-01-07 03:02] LABS: BASOPHILS % (AUTO) 0 % (0-1); EOSINOPHILS % (AUTO) 0.6 % (0-6); HEMOGLOBIN 7.4 g/dl (14.0-17.9); LYMPHOCYTES # (AUTO) 0.1 X10'3 (1.1-4.8); LYMPHOCYTES % (AUTO) 3.7 % (21-51); MEAN CORPUSCULAR HEMOGLOBIN 29.1 PG (27.0-31.0); MEAN CORPUSCULAR HGB CONC 32.4 % (33.0-36.5); MEAN CORPUSCULAR VOLUME 89.7 FL (78-98); MEAN PLATELET VOLUME 8.5 FL (7.4-10.4); MONOCYTES # (AUTO) 0.1 X10'3 (0-0.9); MONOCYTES % (AUTO) 2.7 % (2-12); NEUTROPHILS # (AUTO) 3.1 X10'3 (1.8-7.7); RED BLOOD COUNT 2.56 X10'6 (4.70-6.10); RED CELL DISTRIBUTION WIDTH 23.1 % (11.5-14.5); WHITE BLOOD COUNT 3.3 X10'3 (4.5-11.0)
[2018-01-07 03:19] LABS: ALANINE AMINOTRANSFERASE 54 U/L (12-78); ALBUMIN 2.1 G/DL (3.4-5.0); ALKALINE PHOSPHATASE 43 IU/L (46-116); ANION GAP 8 (8-16); ASPARTATE AMINO TRANSFERASE 25 U/L (10-37); BILIRUBIN,TOTAL 0.4 MG/DL (0.1-1.0); BLOOD UREA NITROGEN 78 MG/DL (7-18); BUN/CREATININE RATIO 57.4 (5.4-32.0); CALCIUM 7.6 MG/DL (8.5-10.1); CHLORIDE 116 MMOL/L (99-107); CREATININE 1.36 MG/DL (0.60-1.10); GLUCOSE 263 MG/DL (70-104); POTASSIUM 4.5 MMOL/L (3.5-5.1); SODIUM 153 MMOL/L (135-145); TOTAL CARBON DIOXIDE 29.1 MMOL/L (24-32); TOTAL PROTEIN 4.3 G/DL (6.4-8.2); eGFR 51 ML/MIN
[2018-01-07 03:43] LABS: PLATELET COUNT 50 X10'3 (140-440)
[2018-01-07 04:51] LABS: ABG BASE EXCESS 0.3 mmol/L (-2.0-3.0); ABG HCO3 25.4 mmol/L (22.0-26.0); ABG OXYGEN SATURATION 98.2 % (95-98); ABG PCO2 (T) 41.8 mmHg (35.0-48.0); ABG PH (T) 7.398 (7.350-7.450); ABG PO2 (T) 130.8 mmHg (83-108); FCOHb 0.3 % (0.5-1.5); FMetHb 0.3 % (0.3-1.12); FO2Hb 97.6 % (94-100); MINUTE VOLUME 12 L/min; PEEP 5 cm H2O; RESPIRATORY RATE 22 b/min; RESPIRATORY RATE (OBSERVED) 28 b/min
[2018-01-07] MEDS: midazolam 100mg in NS 100ml 100 ML IV PRN (04:53)
[2018-01-07] MEDS: amiodarone/D5 360MG/200ML BAG 200 ML IV SCH ×3 (04:59→09:33)
[2018-01-07] MEDS: K, MAG and/or Phos replacement - Verify level? MC SCH (08:00)
[2018-01-07] MEDS: apixaban 5mg tablet PO SCH (08:00)
[2018-01-07] MEDS: lactobacillus rhamnosus 10,000 MMU CELLS/CAPSULE PO SCH ×2 (08:22→17:43)
[2018-01-07] MEDS: amiodarone 200mg tablet PO SCH (08:22)
[2018-01-07] MEDS: pantoprazole 40 MG vial IV SCH (08:22)
[2018-01-07] MEDS: folic acid 0.4mg tablet PO SCH (08:22)
[2018-01-07] MEDS: atorvastatin 20mg tablet PO SCH (08:22)
[2018-01-07] MEDS: aspirin 81mg tab.chew PO SCH (08:22)
[2018-01-07] MEDS: levoFLOXACIN-Levaquin 500mg/D5 100 ML IV SCH (08:23)
[2018-01-07] MEDS: NORepinephrine 8mg/ 250ml NS 250 ML IV PRN (13:39)
[2018-01-07 19:31] LABS: ABG BASE EXCESS -2.2 mmol/L (-2.0-3.0); ABG HCO3 25.7 mmol/L (22.0-26.0); ABG OXYGEN SATURATION 95.7 % (95-98); ABG PCO2 (T) 61.6 mmHg (35.0-48.0); ABG PH (T) 7.234 (7.350-7.450); ABG PO2 (T) 91.9 mmHg (83-108); FCOHb 0.3 % (0.5-1.5); FMetHb 0.2 % (0.3-1.12); FO2Hb 95.2 % (94-100); MINUTE VOLUME 8 L/min; PATIENT TEMPERATURE 36.3; PEEP 5 cm H2O; RESPIRATORY RATE 16 b/min; RESPIRATORY RATE (OBSERVED) 17 b/min; TIDAL VOLUME 400 mL; TOTAL HEMOGLOBIN 7.9 G/dl (14.0-18.0)
[2018-01-07] MEDS ORDERED: normal saline 1000ml 500 ML IV ONE (20:40)
[2018-01-07] MEDS ORDERED: albumin (human) 25% 100 ML IV solution IV ONE (20:45)
[2018-01-07] MEDS ORDERED: vasopressin inj. 60 UNIT in normal saline 100ml IV soln 97 ML IV SCH (20:50)
[2018-01-07] MEDS ORDERED: vasoPRESSIN 20 units/ml inj. ONE ×2 (20:57→21:59)
[2018-01-07] MEDS: FENTANYL-0.9 % NACL/PF 100 ML IV PRN (21:52)
[2018-01-07] MEDS: insulin glargine (Lantus) pen - multi-dose SQ SCH (22:21)
[2018-01-08] VITALS (20 sets, daily range): BP systolic 82–108; BP diastolic 42–58
[2018-01-08] MEDS: mineral oil/petrolatum ophthal oint EACHEYE SCH ×2 (02:59→08:21)
[2018-01-08] MEDS: methylPREDNISolone sod succ 125mg/2ml vial IV SCH ×2 (02:59→08:21)
[2018-01-08] MEDS: insulin regular, human vial - multi-dose SQ SCH ×2 (02:59→08:32)
[2018-01-08] MEDS: midazolam 100mg in NS 100ml 100 ML IV PRN (03:14)
[2018-01-08] MEDS: sodium chloride 0.45% 1,000 ML IV SCH (03:19)
[2018-01-08] MEDS: ipratropium/albuterol 3ml nebule NEB SCH ×3 (03:32→11:06)
[2018-01-08 03:50] LABS: ABG BASE EXCESS -0.2 mmol/L (-2.0-3.0); ABG HCO3 26.2 mmol/L (22.0-26.0); ABG OXYGEN SATURATION 97.6 % (95-98); ABG PCO2 (T) 52.7 mmHg (35.0-48.0); ABG PH (T) 7.312 (7.350-7.450); ABG PO2 (T) 107.3 mmHg (83-108); FCOHb 0.5 % (0.5-1.5); FO2Hb 97.1 % (94-100); MINUTE VOLUME 9 L/min; PATIENT TEMPERATURE 36.5; PEEP 5 cm H2O; RESPIRATORY RATE 16 b/min; RESPIRATORY RATE (OBSERVED) 16 b/min; TIDAL VOLUME 500 mL; TOTAL HEMOGLOBIN 6.7 G/dl (14.0-18.0)
[2018-01-08 05:08] LABS: BASOPHILS % (AUTO) 0 % (0-1); EOSINOPHILS % (AUTO) 0.2 % (0-6); LYMPHOCYTES % (AUTO) 1.6 % (21-51); MEAN CORPUSCULAR HEMOGLOBIN 29.5 PG (27.0-31.0); MEAN CORPUSCULAR HGB CONC 32.4 % (33.0-36.5); MEAN PLATELET VOLUME 8.8 FL (7.4-10.4); MONOCYTES # (AUTO) 0.1 X10'3 (0-0.9); MONOCYTES % (AUTO) 2.2 % (2-12); NEUTROPHILS # (AUTO) 2.3 X10'3 (1.8-7.7); RED BLOOD COUNT 2.01 X10'6 (4.70-6.10); RED CELL DISTRIBUTION WIDTH 22.4 % (11.5-14.5); WHITE BLOOD COUNT 2.4 X10'3 (4.5-11.0)
[2018-01-08 05:33] LABS: HEMATOCRIT 18.3 % (42.0-52.0); HEMOGLOBIN 5.9 g/dl (14.0-17.9); PLATELET COUNT 41 X10'3 (140-440)
[2018-01-08 05:37] LABS: ALANINE AMINOTRANSFERASE 45 U/L (12-78); ALBUMIN 2.7 G/DL (3.4-5.0); ALBUMIN/GLOBULIN RATIO 1.5 (1.1-1.5); ALKALINE PHOSPHATASE 45 IU/L (46-116); ANION GAP 8 (8-16); ASPARTATE AMINO TRANSFERASE 21 U/L (10-37); BILIRUBIN,TOTAL 0.4 MG/DL (0.1-1.0); BLOOD UREA NITROGEN 86 MG/DL (7-18); BUN/CREATININE RATIO 57.3 (5.4-32.0); CALCIUM 7.6 MG/DL (8.5-10.1); CHLORIDE 115 MMOL/L (99-107); GLUCOSE 207 MG/DL (70-104); POTASSIUM 4.5 MMOL/L (3.5-5.1); SODIUM 151 MMOL/L (135-145); TOTAL CARBON DIOXIDE 27.7 MMOL/L (24-32); TOTAL PROTEIN 4.5 G/DL (6.4-8.2); eGFR 46 ML/MIN
[2018-01-08 05:46] LABS: PLATELET ESTIMATE DECREASED; TOTAL CELLS COUNTED 50
[2018-01-08 05:47] LABS: ANISOCYTOSIS 3+; HYPOCHROMASIA 2+
[2018-01-08] MEDS: NORepinephrine 8mg/ 250ml NS 250 ML IV PRN (07:52)
[2018-01-08] MEDS: levoFLOXACIN-Levaquin 500mg/D5 100 ML IV SCH (08:21)
[2018-01-08] MEDS: amiodarone 200mg tablet PO SCH (08:21)
[2018-01-08] MEDS: lactobacillus rhamnosus 10,000 MMU CELLS/CAPSULE PO SCH (08:21)
[2018-01-08 08:22] LABS: ABG PCO2 (T) 82.6 mmHg (35.0-48.0); ABG PH (T) 7.128 (7.350-7.450)
[2018-01-08] MEDS: folic acid 0.4mg tablet PO SCH (08:22)
[2018-01-08] MEDS: aspirin 81mg tab.chew PO SCH (08:22)
== END 2018-01-08 14:46 | disposition expired | DRG 208 ==
LOC: ICU 2S 08:40 → CICU 2S 01-05 18:00
PROVIDERS: ADMIT Internal Medicine Critical Care Medicine; ATTEND Internal Medicine Critical Care Medicine
PROC: 5A1945Z Respiratory Ventilation, 24-96 Consecutive Hours (ICD-10-PCS; principal; 2017-12-30)
PROC: 0BH18EZ Insertion of Endotracheal Airway into Trachea, Via Natural or Artificial Opening Endoscopic (ICD-10-PCS; 2017-12-30)
PROC: 02HV33Z Insertion of Infusion Device into Superior Vena Cava, Percutaneous Approach (ICD-10-PCS; 2017-12-30)
PROC: 5A09357 Assistance with Respiratory Ventilation, Less than 24 Consecutive Hours, Continuous Positive Airway Pressure (ICD-10-PCS; 2018-01-03)
PROC: 5A09357 Assistance with Respiratory Ventilation, Less than 24 Consecutive Hours, Continuous Positive Airway Pressure (ICD-10-PCS; 2018-01-04)
PROC: 5A1945Z Respiratory Ventilation, 24-96 Consecutive Hours (ICD-10-PCS; 2018-01-05)
PROC: 5A09357 Assistance with Respiratory Ventilation, Less than 24 Consecutive Hours, Continuous Positive Airway Pressure (ICD-10-PCS; 2018-01-05)
PROC: 0W9B30Z Drainage of Left Pleural Cavity with Drainage Device, Percutaneous Approach (ICD-10-PCS; 2018-01-07)
PROC: 30233R1 Transfusion of Nonautologous Platelets into Peripheral Vein, Percutaneous Approach (ICD-10-PCS; 2018-01-08)
PROC: 30233N1 Transfusion of Nonautologous Red Blood Cells into Peripheral Vein, Percutaneous Approach (ICD-10-PCS; 2018-01-08)
DX: J96.20 Acute and chronic respiratory failure, unspecified whether with hypoxia or hypercapnia (principal); J09.X1 Influenza due to identified novel influenza A virus with pneumonia; E43 Unspecified severe protein-calorie malnutrition; R57.0 Cardiogenic shock; R65.21 Severe sepsis with septic shock; J93.0 Spontaneous tension pneumothorax; A41.9 Sepsis, unspecified organism; J18.9 Pneumonia, unspecified organism; J44.0 Chronic obstructive pulmonary disease with (acute) lower respiratory infection; I50.9 Heart failure, unspecified; I48.91 Unspecified atrial fibrillation; D64.9 Anemia, unspecified; G47.30 Sleep apnea, unspecified; I25.10 Atherosclerotic heart disease of native coronary artery without angina pectoris; Z51.5 Encounter for palliative care; Z79.899 Other long term (current) drug therapy; Z79.01 Long term (current) use of anticoagulants; Z79.82 Long term (current) use of aspirin; Z68.26 Body mass index [BMI] 26.0-26.9, adult
CPT/HCPCS: 36415; 36600; 71045; 74018; 80053; 80162; 81001; 82803; 82810; 82948; 83036; 83605; 83735; 84100; 84134; 84145; 84439; 84443; 85018; 85025; 85379; 85384; 85610; 85730; 86885; 86900; 86901; 86920; 87040; 87070; 87077; 87088; 87186; 87502; 87503; 92616; 93005; 93308; 94002; 94003; 94640; 94660; 94760; A6212; A6213; A6222; A6258; A6402; A6449; A7015; C1758; C9113; J0282; J0696; J1200; J1250; J1650; J1815; J1956; J2020; J2250; J2543; J2930; J3490; J7030; J7512; J7626; P9016; P9035; P9047